=== PATIENT | male | born 2005 | race Caucasian/White ===

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

== ENCOUNTER 2024-09-26 18:26 | Emergency (ER) | payer MEDICAID, OTHER ==
[~2024-09-26] VITALS: Ht 170.2 cm; Wt 80.0 kg
[2024-09-26 18:32] VITALS: O2SAT 100
[2024-09-26] MEDS: IBUPROFEN 600MG TABLET PO ONE (19:37)
[2024-09-26 21:19] VITALS: BP 101/54; PULSE 60; RESP 18; TEMP 36.8; O2SAT 100
== END 2024-09-26 21:28 | disposition home or self-care (01) ==
LOC: ER 18:26
DX: S62.336A Displaced fracture of neck of fifth metacarpal bone, right hand, initial encounter for closed fracture (principal); W22.01XA Walked into wall, initial encounter; Y93.89 Activity, other specified; Y92.89 Other specified places as the place of occurrence of the external cause; Y99.8 Other external cause status
CPT/HCPCS: 99283; 73130; 29125; A6449